=== PATIENT | female | born 1965 | race Caucasian/White ===

== ENCOUNTER 2020-09-08 10:45 | Emergency (ER) | payer OTHER ==
[2020-09-08 11:20] VITALS: BP 135/79; PULSE 100; TEMP 98.2; BMI 23.8
[2020-09-08] MEDS ORDERED: FAMOTIDINE 20 MG TABLET PO ONE (11:35)
[2020-09-08] MEDS ORDERED: DEXAMETHASONE SOD PHOSPHATE 10 MG/1 ML VIAL IM ONE (11:35)
[2020-09-08] MEDS ORDERED: DEXAMETHASONE SOD PHOSPHATE 10 MG/1 ML VIAL ONE (11:37)
[2020-09-08] MEDS ORDERED: FAMOTIDINE 20 MG TABLET ONE (11:38)
== END 2020-09-08 12:34 | disposition home or self-care (01) ==
LOC: JERFT 10:45
PROC: 3E023NZ Introduction of Analgesics, Hypnotics, Sedatives into Muscle, Percutaneous Approach (ICD-10-PCS; principal; 2020-09-08)
PROC: 3E023GC Introduction of Other Therapeutic Substance into Muscle, Percutaneous Approach (ICD-10-PCS; 2020-09-08)
DX: L23.9 Allergic contact dermatitis, unspecified cause (principal); T78.40XA Allergy, unspecified, initial encounter
CPT/HCPCS: 96372; 99284-25; J1100